=== PATIENT | female | born 1940 | race Caucasian/White ===

== ENCOUNTER 2017-09-21 14:09 | Outpatient (CLI) | payer MEDICARE, OTHER ==
--- NOTE | 2017-09-21 16:25 | DEXA Report ---
DEXA SCAN: 09/21/2017 CLINICAL INDICATION: Postmenopausal. TECHNIQUE: Dual energy x-ray absorptiometry (DXA) was performed on a [employer] system. Regions measured are the AP spine, femoral neck, and, if needed, forearm. COMPARISON: None. In accordance with the International Society for Clinical Densitometry (ISCD) guidelines, data from previous exams may be reanalyzed using current recommendations and techniques. This is done to allow a more accurate basis for comparison with the current study. FINDINGS Data for the lumbar spine is as follows: REGION BMD (g/cm/cm) T-SCORE Z-SCORE L1 0.970 -1.3 -0.3 L2 1.062 -1.2 -0.2 L3 1.098 -0.8 0.2 L4 1.104 -0.8 0.2 TOTAL 1.063 -1.0 0.0 NOTE: All evaluable vertebrae are used for classification. Data for the hip is as follows: REGION BMD (g/cm/cm) T-SCORE Z-SCORE Neck 0.942 -0.7 0.8 TOTAL 0.956 -0.4 0.8 NOTE: The femoral neck or total proximal femur, whichever is lowest, is used for classification. IMPRESSION: THE WHO CLASSIFICATION BASED ON THE INTERNATIONAL REFERENCE STANDARD IS NORMAL. FRACTURE RISK IS NOT INCREASED. RECOMMENDATION: Patients with diagnosis of osteoporosis or osteopenia should have regular bone mineral density assessment. For those eligible for Medicare, routine testing is allowed once every 2 years. Testing frequency can be increased for patients who have rapidly progressing disease or for those who are receiving medical therapy to restore bone mass. COMMENT: World Health Organization (WHO) definitions for osteoporosis and osteopenia: NORMAL BMD: T-score at -1.0 or higher, fracture risk is low. OSTEOPENIA BMD: T-score between -1.0 and -2.5, fracture risk is increased. OSTEOPOROSIS BMD: T-score at -2.5 or lower, fracture risk high. National Osteoporosis Foundation recommends: 1. Obtain adequate dietary calcium (at least 1200 mg per day) and vitamin D (400 -800 international units per day). 2. Participate, as appropriate, in regular weightbearing and muscle- strengthening exercise. 3. Avoid tobacco use and reduce alcohol and caffeine intake. 4. For more detailed information see the website at www.NOF.org. MTDD
== END 2017-09-21 14:10 | disposition home or self-care (01) ==
LOC: DI 14:09
PROVIDERS: ATTEND Family Medicine
DX: Z13.820 Encounter for screening for osteoporosis (principal); Z78.0 Asymptomatic menopausal state; E83.52 Hypercalcemia
CPT/HCPCS: 77080

== ENCOUNTER 2018-01-30 10:22 | Emergency (ER) | payer MEDICARE, OTHER ==
[2018-01-30] MEDS ORDERED: ALBUTEROL NEB 2.5 MG/3 ML INH STA ×2 (11:25→12:18)
--- NOTE | 2018-01-30 11:54 | XRAY Report ---
EXAM: CHEST RADIOGRAPHY EXAM DATE: 01/30/2018 11:33 AM. CLINICAL HISTORY: Cough, shortness of breath. COMPARISON: 12/31/2007 TECHNIQUE: 1 view. FINDINGS: Lungs/Pleura: No focal opacities evident. No pleural effusion. No pneumothorax. Mediastinum: Cardiomegaly Other: Surgical clips right CP angle IMPRESSION: No acute findings compared with 12/31/2007. Cardiomegaly. Clear lungs. [facility] Referring Provider Line: [phone] SITE ID: [id number]
[2018-01-30] MEDS ORDERED: DEXAMETHASONE 10 MG/ML VIAL PO STA (12:18)
[2018-01-30] MEDS ORDERED: DOXYCYCLINE 100 MG TABLET PO STA (12:19)
[2018-01-30] MEDS ORDERED: BENZONATATE 100 MG CAPSULE PO STA (12:20)
[2018-01-30 12:44] LABS: ALBUMIN 4.3 g/dL (3.2-5.5); ALBUMIN/GLOBULIN RATIO 1.3 (1.0-2.2); ALKALINE PHOSPHATASE 39 IU/L (42-121); ALT ALANINE AMINOTRANSFERASE 26 IU/L (10-60); AST ASPARTATE AMINOTRANSFERASE 28 IU/L (10-42); BILIRUBIN,TOTAL 1.9 mg/dL (0.2-1.0); BUN - BLOOD UREA NITROGEN 10 mg/dL (6-20); CALCIUM 9.5 mg/dL (8.5-10.3); CARBON DIOXIDE - CO2 26 mmol/L (21-32); CHLORIDE 98 mmol/L (101-111); CREATININE 0.5 mg/dL (0.4-1.0); DIGOXIN 1.7 ng/mL; GFR - MDRD 120 (>89); GLUCOSE 152 mg/dL (70-100); LIPASE 17 U/L (22-51); MAGNESIUM 1.8 mg/dL (1.7-2.8); SODIUM 133 mmol/L (135-145); TOTAL PROTEIN 7.5 g/dL (6.7-8.2)
--- NOTE | 2018-01-30 13:22 | ED Physician Documentation ---
PD HPI URI - Stated complaint Stated Complaint: COUGH,SOA - Chief complaint Chief Complaint: Resp - History obtained from History obtained from: Patient - History of Present Illness Timing - onset: How many days ago (has had some cough and congestion for week or two and now with few days of much increased cough, dyspnea, green sputum and some hurting with cough.) Timing duration: Days Timing details: Gradual onset, Still present Associated symptoms: Chills, Productive cough. No: Fever, Nasal congestion, Bilateral edema Contributing factors: No: Sick contact, Travel, Immunocompromised, COPD / asthma Similar symptoms before: Has not had sx before Recently seen: Not recently seen Review of Systems Constitutional: reports: Myalgias. denies: Fever, Chills Nose: denies: Rhinorrhea / runny nose, Congestion (previously couple weeks ago, not now.) Throat: denies: Sore throat Cardiac: reports: Chest pain / pressure (with cough). denies: Palpitations Respiratory: reports: Dyspnea, Cough GI: denies: Nausea, Vomiting, Diarrhea : denies: Dysuria, Frequency Skin: denies: Rash, Lesions PD PAST MEDICAL HISTORY - Past Medical History Cardiovascular: Hypertension, Atrial fibrillation Endocrine/Autoimmune: Type 2 diabetes, HyPOthyroidism - Past Surgical History Past Surgical History: Yes Ortho: Knee replacement, Carpal Tunnel surgery - Present Medications Home Medications: Ambulatory Orders Medication Instructions Recorded Confirmed Atorvastatin Calcium [Lipitor] 10 mg PO DAILY 03/30/15 01/05/16 Levothyroxine [Synthroid] 25 mcg PO QDAC 03/30/15 01/05/16 Olmesartan Medoxomil [Benicar] 20 mg PO DAILY 03/30/15 01/05/16 metFORMIN [Glucophage] 500 mg PO DAILY 03/30/15 01/05/16 diltiaZEM CD [Cardizem Cd] 360 mg PO DAILY 04/04/15 01/05/16 Digoxin 1 tab DAILY 01/05/16 01/05/16 Eszopiclone [Lunesta] 1 tab QPM 01/05/16 01/05/16 Anastrozole [Arimidex] 1 mg PO DAILY 12/17/17 Rivaroxaban [Xarelto] 20 mg PO DAILY 12/17/17 Albuterol Sulf [Ventolin Hfa 1 - 2 puffs INH Q4HR PRN #1 inhaler 01/30/18 Inhaler] Benzonatate [Tessalon] 100 mg PO TID PRN #25 capsule 01/30/18 Dexamethasone [Decadron] 4 mg PO DAILY #5 tablet 01/30/18 Diltiazem HCl [Diltiazem HCl Cd] 360 mg PO 01/30/18 Doxycycline Monohydrate 100 mg PO BID #14 tablet 01/30/18 - Allergies Allergies/Adverse Reactions: Allergies Allergy/AdvReac Type Severity Reaction Status Date / Time lisinopril Allergy Unknown Verified 01/30/18 10:43 metoprolol succinate * Allergy Respiratory Verified 01/30/18 10:43 [From Toprol XL] telmisartan Allergy Respiratory Verified 01/30/18 10:43 venom-wasp [wasp venom] Allergy Unknown Verified 01/30/18 10:43 zolpidem tartrate * Allergy Hallucinati Verified 01/30/18 10:43 [From Ambien] ons - Social History Does the pt smoke?: No Smoking Status: Never smoker Does the pt drink ETOH?: Yes Does the pt have substance abuse?: No - Immunizations Immunizations are current?: Yes - POLST Patient has POLST: No PD ED PE NORMAL - Vitals Vital signs reviewed: Yes - General General: Alert and oriented X 3, Well developed/nourished - HEENT HEENT: Ears normal, Pharynx benign - Neck Neck: Supple, no meningeal sign, No adenopathy - Cardiac Cardiac: RRR, No murmur - Respiratory Respiratory: No respiratory distress, Clear bilaterally - Abdomen Abdomen: Soft, Non tender - Derm Derm: Normal color, Warm and dry - Extremities Extremities: No edema, No calf tenderness / cord - Neuro Neuro: Alert and oriented X 3, No motor deficit, Normal speech Results - Vitals Vitals: Vital Signs - 24 hr 01/30/18 01/30/18 01/30/18 10:30 11:00 11:30 Temperature 36.7 C Heart Rate 95 80 86 Respiratory 20 23 22 Rate Blood Pressure 148/96 H 144/96 H O2 Saturation 91 L 94 93 01/30/18 01/30/18 01/30/18 12:00 13:00 13:02 Temperature Heart Rate 74 81 90 Respiratory 20 20 22 Rate Blood Pressure 156/93 H O2 Saturation 93 93 01/30/18 13:36 Temperature Heart Rate 97 Respiratory 24 Rate Blood Pressure 143/86 H O2 Saturation 92 Oxygen O2 Source Room air - Labs Labs: Laboratory Tests 01/30/18 11:17 Sodium 133 L Potassium 4.3 Chloride 98 L Carbon Dioxide 26 Anion Gap 9.0 BUN 10 Creatinine 0.5 Estimated GFR (MDRD) 120 Glucose 152 H Calcium 9.5 Magnesium 1.8 Total Bilirubin 1.9 H AST 28 ALT 26 Alkaline Phosphatase 39 L Total Protein 7.5 Albumin 4.3 Globulin 3.2 Albumin/Globulin Ratio 1.3 Lipase 17 L Last Dose Date UNK Last Dose Time UNK Digoxin 1.7 - Rads (name of study) chest Radiology: Prelim report reviewed, EMP read contemporaneously (no infiltrates) PD MEDICAL DECISION MAKING - ED course Complexity details: considered differential (prolonged cough and URI symptoms with now increased cough and green sputum, consider bacterial transformation. ) , d/w patient Departure - Departure Disposition: Home, Self Care Clinical Impression: Upper respiratory infection Qualifiers: URI type: unspecified URI Qualified Code(s): J06.9 - Acute upper respiratory infection, unspecified Condition: Stable Record reviewed to determine appropriate education?: Yes Instructions: ED Upper Resp Infec Abx Tx Follow-Up: Sridevi Sawant MD [Primary Care Provider] - Prescriptions: Albuterol Sulf [Ventolin Hfa Inhaler] 1 - 2 puffs INH Q4HR PRN #1 inhaler PRN Reason: Shortness Of Air/Wheezing Benzonatate [Tessalon] 100 mg PO TID PRN #25 capsule PRN Reason: Cough Dexamethasone [Decadron] 4 mg PO DAILY #5 tablet Doxycycline Monohydrate 100 mg PO BID #14 tablet Comments: We will treat your cough and respiratory infection as bacterial with doxycycline antibiotic. Also to use Decadron steroid anti-inflammatory and albuterol inhaler to help with the coughing and symptoms. Use the inhaler 2 puffs 4 times a day for the next 7-10 days and extra times as needed. Drink lots of fluids. Tessalon if needed for cough. Your digoxin level was slightly high in the range on blood test and so I would hold that for 2 days and then continue the normal. Follow-up with your primary care in about 3-5 days for recheck, call for an appointment. They will likely want to recheck your digoxin level in about a week or so to make sure it is still okay. Return if worsening symptoms. Discharge Date/Time: 01/30/18 14:10
[2018-01-30 13:38] VITALS: BP 143/86
== END 2018-01-30 14:10 | disposition home or self-care (01) ==
LOC: ED 10:22
DX: J06.9 Acute upper respiratory infection, unspecified (principal); I48.91 Unspecified atrial fibrillation; E11.9 Type 2 diabetes mellitus without complications; I10 Essential (primary) hypertension; E03.9 Hypothyroidism, unspecified; Z96.659 Presence of unspecified artificial knee joint
CPT/HCPCS: 36415; 71045; 80053; 80162; 83690; 83735; 93005; 94640; 99283; A9270

== ENCOUNTER 2018-07-30 15:57 | Emergency (ER) | payer MEDICARE, OTHER ==
[2018-07-30] MEDS ORDERED: AMPICILLIN/SULBACTAM 3 GM in SODIUM CHLORIDE 0.9% MINIBAG 100 ML IV STA (18:43)
[2018-07-30] MEDS ORDERED: TETANUS/DIPHTHERIA/PERTUSSIS 0.5 ML SYRINGE IM ONE (18:43)
[2018-07-30 18:59] LABS: BASOPHILS # (AUTO) 0.1 10^3/uL (0.0-0.1); BASOPHILS % (AUTO) 0.6 %; EOSINOPHILS # (AUTO) 0.1 10^3/uL (0.0-0.7); EOSINOPHILS % (AUTO) 0.6 %; HGB - HEMOGLOBIN 14.2 g/dL (12.0-16.0); LYMPHOCYTES # (AUTO) 1.3 10^3/uL (1.5-3.5); LYMPHOCYTES % (AUTO) 13.4 %; MEAN CORPUSCULAR HEMOGLOBIN 30.9 pg (27.0-31.0); MEAN CORPUSCULAR HGB CONC 34.6 g/dL (32.0-36.0); MEAN CORPUSCULAR VOLUME 89.2 fL (81.0-99.0); MEAN PLATELET VOLUME 8.4 fL (7.9-10.8); MONOCYTES # (AUTO) 0.9 10^3/uL (0.0-1.0); MONOCYTES % (AUTO) 9.5 %; NEUTROPHILS # (AUTO) 7.3 10^3/uL (1.5-6.6); NEUTROPHILS % (AUTO) 75.9 %; PLT - PLATELET COUNT 159 10^3/uL (130-450); RED BLOOD COUNT 4.61 10^6/uL (4.20-5.40); RED CELL DISTRIBUTION WIDTH 14.1 % (12.0-15.0); WHITE BLOOD COUNT 9.6 x10^3/uL (4.8-10.8)
[2018-07-30 19:06] LABS: CALCIUM 9.8 mg/dL (8.5-10.3); CREATININE 0.6 mg/dL (0.4-1.0)
--- NOTE | 2018-07-30 19:51 | XRAY Report ---
Reason: Redness and swelling Procedure Date: 07/30/2018 Accession Number: [id number] / [id number] Procedure: XR - Tib/Fib RT CPT Code: FULL RESULT: EXAM: RIGHT TIBIA/FIBULA RADIOGRAPHY EXAM DATE: 07/30/2018 07:13 PM. CLINICAL HISTORY: Redness and swelling. COMPARISON: None. TECHNIQUE: 2 views. FINDINGS: No acute bony abnormality. No evidence of lytic lesion or periosteal new bone formation. No fracture. Mild spurring noted at the knee. Unremarkable ankle. There is mild soft tissue swelling lateral and ventral. IMPRESSION: Mild lateral and ventral soft tissue swelling. Otherwise essentially unremarkable. No acute bony abnormality. [facility]
[2018-07-30 20:03] VITALS: BP 119/64
--- NOTE | 2018-07-30 20:20 | ED Physician Documentation ---
PD HPI ANIMAL BITE - Stated complaint Stated Complaint: CAT BITE/SWELLING/ R LEG - Chief complaint Chief Complaint: Wound - History obtained from History obtained from: Patient - Additional information Additional information: 78-year-old female presents the emergency department with complaints of right lower leg redness and swelling. The patient was bit by her cat 3 times in her lower leg. The cat is up-to-date on its vaccinations. The patient reports redness which has gradually worsened and swelling. The patient had an episode of chills. No reports of fever. Symptoms are described as moderate. No relieving factors. Review of Systems Constitutional: reports: Chills, Fatigue. denies: Fever Eyes: denies: Discharge Nose: denies: Congestion Throat: denies: Sore throat Cardiac: denies: Chest pain / pressure Respiratory: denies: Dyspnea GI: denies: Abdominal Pain Skin: reports: Other (Cellulitis) Musculoskeletal: reports: Extremity pain Psychiatric: denies: Hallucinations PD PAST MEDICAL HISTORY - Past Medical History Past Medical History: Yes Cardiovascular: Hypertension, Atrial fibrillation Endocrine/Autoimmune: Type 2 diabetes, HyPOthyroidism - Past Surgical History Past Surgical History: Yes Ortho: Knee replacement, Carpal Tunnel surgery - Present Medications Home Medications: Ambulatory Orders Medication Instructions Recorded Confirmed Atorvastatin Calcium [Lipitor] 10 mg PO DAILY 03/30/15 01/05/16 Levothyroxine [Synthroid] 25 mcg PO QDAC 03/30/15 01/05/16 Olmesartan Medoxomil [Benicar] 20 mg PO DAILY 03/30/15 01/05/16 metFORMIN [Glucophage] 500 mg PO DAILY 03/30/15 01/05/16 diltiaZEM CD [Cardizem Cd] 360 mg PO DAILY 04/04/15 01/05/16 Digoxin 1 tab DAILY 01/05/16 01/05/16 Eszopiclone [Lunesta] 1 tab QPM 01/05/16 01/05/16 Anastrozole [Arimidex] 1 mg PO DAILY 12/17/17 Rivaroxaban [Xarelto] 20 mg PO DAILY 12/17/17 Albuterol Sulf [Ventolin Hfa 1 - 2 puffs INH Q4HR PRN #1 inhaler 01/30/18 Inhaler] Benzonatate [Tessalon] 100 mg PO TID PRN #25 capsule 01/30/18 Dexamethasone [Decadron] 4 mg PO DAILY #5 tablet 01/30/18 Doxycycline Monohydrate 100 mg PO BID #14 tablet 01/30/18 dilTIAZem HCl [Diltiazem HCl Cd] 360 mg PO 01/30/18 Amox/Clav 875/125 [Augmentin] 1 each PO Q12H #20 tablet 07/30/18 - Allergies Allergies/Adverse Reactions: Allergies Allergy/AdvReac Type Severity Reaction Status Date / Time lisinopril Allergy Unknown Verified 07/30/18 16:38 metoprolol succinate * Allergy Respiratory Verified 07/30/18 16:38 [From Toprol XL] telmisartan Allergy Respiratory Verified 07/30/18 16:38 venom-wasp [wasp venom] Allergy Unknown Verified 07/30/18 16:38 zolpidem tartrate * Allergy Hallucinati Verified 07/30/18 16:38 [From Ambien] ons - Social History Does the pt smoke?: No Smoking Status: Never smoker Does the pt drink ETOH?: Yes Does the pt have substance abuse?: No - Immunizations Immunizations are current?: Yes - POLST Patient has POLST: No PD ED PE NORMAL - General General: Alert and oriented X 3, No acute distress - HEENT HEENT: Atraumatic, PERRL, EOMI, Ears normal - Derm Derm: Other (The patient has cellulitic changes to the right lower extremity below the knee to just above the ankle with mild edema. There is no crepitus or subcutaneous emphysema. The patient has no evidence of joint effusion or pain in any of her joints.) - Extremities Extremities: Normal ROM s pain, Other (Normal dorsalis pedis pulse) - Neuro Neuro: Alert and oriented X 3, Normal speech - Psych Psych: Normal mood Results - Vitals Vitals: Vital Signs - 24 hr 07/30/18 07/30/18 07/30/18 16:27 18:55 20:03 Temperature 36.2 C L 36.8 C Heart Rate 84 70 76 Respiratory 18 18 Rate Blood Pressure 107/62 127/59 L 119/64 O2 Saturation 96 95 97 Oxygen O2 Source Room air - Labs Labs: Laboratory Tests 07/30/18 07/30/18 18:49 18:49 WBC 9.6 RBC 4.61 Hgb 14.2 Hct 41.1 MCV 89.2 MCH 30.9 MCHC 34.6 RDW 14.1 Plt Count 159 MPV 8.4 Neut # (Auto) 7.3 H Lymph # (Auto) 1.3 L [place] # (Auto) 0.9 Eos # (Auto) 0.1 Baso # (Auto) 0.1 Absolute Nucleated RBC 0.01 Nucleated RBC % 0.1 Sodium 135 Potassium 3.7 Chloride 100 L Carbon Dioxide 25 Anion Gap 10.0 BUN 12 Creatinine 0.6 Estimated GFR (MDRD) 97 Glucose 121 H Calcium 9.8 - Rads (name of study) XR tib/fib Radiology: Final report received PD MEDICAL DECISION MAKING - ED course ED course: On reevaluation the patient resting comfortably, currently there is no evidence of sepsis or necrotizing fasciitis. The patient appears to have cellulitis secondary to the cat bite and appears appropriate for a trial of outpatient management with oral antibiotics. The patient was given 1 dose of IV antibiotics in the emergency department. The area was marked. I discussed with the patient warning signs and recommended returning to the emergency department immediately for worsening or any concerns. - Sepsis Event Vital Signs: Vital Signs - 24 hr 07/30/18 07/30/18 07/30/18 16:27 18:55 20:03 Temperature 36.2 C L 36.8 C Heart Rate 84 70 76 Respiratory 18 18 Rate Blood Pressure 107/62 127/59 L 119/64 O2 Saturation 96 95 97 Oxygen O2 Source Room air Departure - Departure Disposition: 01 Home, Self Care Clinical Impression: Cat bite Qualifiers: Encounter type: initial encounter Qualified Code(s): W55.01XA - Bitten by cat, initial encounter Cellulitis Qualifiers: Site of cellulitis: extremity Site of cellulitis of extremity: lower extremity Laterality: unspecified laterality Qualified Code(s): L03.119 - Cellulitis of unspecified part of limb Condition: Good Instructions: ED Infec Skin Cellulitis, ED Animal Bite Ch Follow-Up: Sridevi Sawant MD [Primary Care Provider] - Within 3 Days Prescriptions: Amox/Clav 875/125 [Augmentin] 1 each PO Q12H #20 tablet Comments: Please return to the emergency department immediately for worsening symptoms or any concerns
== END 2018-07-30 20:30 | disposition home or self-care (01) ==
LOC: ED 15:57
DX: L03.119 Cellulitis of unspecified part of limb (principal); I10 Essential (primary) hypertension; E11.9 Type 2 diabetes mellitus without complications; E03.9 Hypothyroidism, unspecified; Z23 Encounter for immunization
CPT/HCPCS: 36415; 80048; 85025; 87040; 90471; 96365; 99283

== ENCOUNTER 2019-02-17 08:00 | Outpatient (CLI) | payer MEDICARE, OTHER ==
[2019-02-17 13:28] LABS: BUN - BLOOD UREA NITROGEN 12 mg/dL (6-20); CALCIUM 9.5 mg/dL (8.5-10.3); CARBON DIOXIDE - CO2 28 mmol/L (21-32); CHLORIDE 100 mmol/L (101-111); CHOL/HDL RATIO 3.1 (<4.4); CHOLESTEROL 131 mg/dL; CREATININE 0.6 mg/dL (0.4-1.0); CREATININE,URINE 56.2 mg/dL; GFR - MDRD 97 (>89); GLUCOSE 164 mg/dL (70-100); HDL CHOLESTEROL 42 mg/dL; LDL CHOLESTEROL,CALCULATED 67 mg/dL; LDL/HDL RATIO 1.6 (<4.4); MICROALBUM/CREATININE RATIO,UR 7.1 ug/mg (<30.0); MICROALBUMIN,URINE 0.4 mg/dL (0-300.0); SODIUM 137 mmol/L (135-145); VLDL CHOLESTEROL 22 mg/dL
[2019-02-17 13:33] LABS: HB2 TOTAL 15.6 g/dL; HEMOGLOBIN A1C 0.79 g/dL; HEMOGLOBIN A1C % 6.8 % (4.6-6.2); THYROID STIMULATING HORMONE 1.95 uIU/mL (0.34-5.60)
[2019-02-17 13:38] LABS: FREE T4 (FREE THYROXINE) 1.05 ng/dL (0.58-1.64)
== END 2019-02-17 23:59 | disposition home or self-care (01) ==
LOC: LAB.N 08:00
PROVIDERS: ATTEND Family Medicine
DX: E11.21 Type 2 diabetes mellitus with diabetic nephropathy (principal); I10 Essential (primary) hypertension; E03.9 Hypothyroidism, unspecified; E78.5 Hyperlipidemia, unspecified; E83.52 Hypercalcemia
CPT/HCPCS: 36415; 80048; 80061; 82043; 82570; 83036; 83721; 83970; 84439; 84443

== ENCOUNTER 2019-06-25 11:16 | Emergency (ER) | payer MEDICARE, OTHER ==
[2019-06-25 12:11] VITALS: BP 114/77
--- NOTE | 2019-06-25 12:55 | ED Physician Documentation ---
PD HPI CHEST PAIN - Stated complaint Stated Complaint: CONGESTION/COUGH - Chief complaint Chief Complaint: Resp - History obtained from History obtained from: Patient - History of Present Illness Timing - onset: Other (Been sick for about a week, mostly upper respiratory symptoms at first but now more of a productive cough with shortness of breath. No fevers. She has a history of atrial fibrillation on Xarelto. Her legs are not swollen. Cough is productive of minimal yellowish sputum and is keeping her up at night. No fevers.) Review of Systems Ten Systems: 10 systems reviewed and negative Constitutional: denies: Fever, Chills Nose: reports: Rhinorrhea / runny nose, Congestion Throat: denies: Sore throat Cardiac: denies: Chest pain / pressure, Palpitations, Pedal edema, Calf pain Respiratory: reports: Dyspnea, Cough GI: denies: Abdominal Pain PD PAST MEDICAL HISTORY - Past Medical History Cardiovascular: Hypertension, Atrial fibrillation Endocrine/Autoimmune: Type 2 diabetes, HyPOthyroidism - Past Surgical History Past Surgical History: Yes Ortho: Knee replacement, Carpal Tunnel surgery - Present Medications Home Medications: Ambulatory Orders Medication Instructions Recorded Confirmed Atorvastatin Calcium [Lipitor] 10 mg PO DAILY 03/30/15 01/05/16 Levothyroxine [Synthroid] 25 mcg PO QDAC 03/30/15 01/05/16 Olmesartan Medoxomil [Benicar] 20 mg PO DAILY 03/30/15 01/05/16 metFORMIN [Glucophage] 500 mg PO DAILY 03/30/15 01/05/16 diltiaZEM CD [Cardizem Cd] 360 mg PO DAILY 04/04/15 01/05/16 Digoxin 1 tab DAILY 01/05/16 01/05/16 Eszopiclone [Lunesta] 1 tab QPM 01/05/16 01/05/16 Anastrozole [Arimidex] 1 mg PO DAILY 12/17/17 Rivaroxaban [Xarelto] 20 mg PO DAILY 12/17/17 Albuterol Sulf [Ventolin Hfa 1 - 2 puffs INH Q4HR PRN #1 inhaler 01/30/18 Inhaler] Benzonatate [Tessalon] 100 mg PO TID PRN #25 capsule 01/30/18 Doxycycline Monohydrate 100 mg PO BID #14 tablet 01/30/18 dexAMETHasone [Decadron] 4 mg PO DAILY #5 tablet 01/30/18 dilTIAZem HCl [Diltiazem HCl Cd] 360 mg PO 01/30/18 Amox/Clav 875/125 [Augmentin] 1 each PO Q12H #20 tablet 07/30/18 Albuterol Sulf [Ventolin Hfa 1 - 2 puffs INH Q4HR PRN #1 inhaler 06/25/19 Inhaler] Doxycycline Hyclate 100 mg PO BID #14 capsule 06/25/19 guaiFENesin/CODEINE [Robitussin AC] 5 - 10 ml PO Q6H PRN #120 ml 06/25/19 predniSONE [Deltasone] 60 mg PO DAILY 5 Days tablet 06/25/19 - Allergies Allergies/Adverse Reactions: Allergies Allergy/AdvReac Type Severity Reaction Status Date / Time lisinopril Allergy Unknown Verified 06/25/19 11:49 metoprolol succinate * Allergy Respiratory Verified 06/25/19 11:49 [From Toprol XL] telmisartan Allergy Respiratory Verified 06/25/19 11:49 venom-wasp [wasp venom] Allergy Unknown Verified 06/25/19 11:49 zolpidem tartrate * Allergy Hallucinati Verified 06/25/19 11:49 [From Ambien] ons - Social History Does the pt smoke?: No Smoking Status: Never smoker Does the pt drink ETOH?: Yes Does the pt have substance abuse?: No - Immunizations Immunizations are current?: Yes - POLST Patient has POLST: No PD ED PE NORMAL - Vitals Vital signs reviewed: Yes - General General: Alert and oriented X 3, No acute distress - HEENT HEENT: Ears normal, Pharynx benign - Neck Neck: Supple, no meningeal sign, No bony TTP - Cardiac Cardiac: Other (Irregularly irregular without murmur) - Respiratory Respiratory: No respiratory distress, Other (Slightly wheezy throughout without focal findings) - Abdomen Abdomen: Non tender - Extremities Extremities: No edema, No calf tenderness / cord - Neuro Neuro: Alert and oriented X 3, Normal speech Results - Vitals Vitals: Vital Signs - 24 hr 06/25/19 06/25/19 11:46 12:10 Temperature 36.3 C L Heart Rate 115 H 102 H Respiratory 22 28 H Rate Blood Pressure 128/62 114/77 O2 Saturation 91 L 94 Oxygen O2 Source Room air PD MEDICAL DECISION MAKING - ED course ED course: This is a 79-year-old woman with what seems like asthmatic bronchitis. There is no evidence of active CHF, nothing in the history or physical to suggest PE, ACS etc. Given comorbidities and advanced age she was given steroids, antibiotics, inhaler and codeine. Departure - Departure Disposition: 01 Home, Self Care Clinical Impression: Bronchitis Condition: Good Record reviewed to determine appropriate education?: Yes Instructions: ED Bronchitis Asthmatic Prescriptions: Albuterol Sulf [Ventolin Hfa Inhaler] 1 - 2 puffs INH Q4HR PRN #1 inhaler PRN Reason: Shortness Of Air/Wheezing Doxycycline Hyclate 100 mg PO BID #14 capsule guaiFENesin/CODEINE [Robitussin AC] 5 - 10 ml PO Q6H PRN #120 ml PRN Reason: Cough predniSONE [Deltasone] 60 mg PO DAILY 5 Days tablet Comments: Call your doctor to arrange a follow-up appointment, make the next available appointment. In the interim, return anytime if worse or if new symptoms develop.
--- NOTE | 2019-06-25 13:01 | XRAY Report ---
Reason: cough Procedure Date: 06/25/2019 Accession Number: [id number] / [id number] Procedure: XR - Chest 2 View X-Ray CPT Code: 98924 FULL RESULT: EXAM: CHEST RADIOGRAPHY EXAM DATE: 06/25/2019 12:36 PM. CLINICAL HISTORY: Cough. COMPARISON: CHEST 1 VIEW 01/30/2018 11:25 AM. TECHNIQUE: 2 views. FINDINGS: Lungs/Pleura: No focal opacities evident. No pleural effusion. No pneumothorax. Normal volumes. Mediastinum: Marked cardiomegaly is redemonstrated, not significantly changed. Other: Surgical clips project over the right lower lateral lung, likely breast related. IMPRESSION: No acute cardiopulmonary abnormality. [facility]
== END 2019-06-25 12:55 | disposition home or self-care (01) ==
LOC: ED 11:16
DX: J40 Bronchitis, not specified as acute or chronic (principal); I10 Essential (primary) hypertension; I48.91 Unspecified atrial fibrillation; Z79.01 Long term (current) use of anticoagulants; E11.9 Type 2 diabetes mellitus without complications; Z79.84 Long term (current) use of oral hypoglycemic drugs
CPT/HCPCS: 71046; 99284

== ENCOUNTER 2021-05-13 14:27 | Outpatient (CLI) | payer MEDICARE, OTHER ==
--- NOTE | 2021-05-13 16:29 | DEXA Report ---
PROCEDURE: Dexa Spine and/or Hip INDICATIONS: BREAST CA/SENIOR CARE CURRENT USE OF AROMATASE INHIB TECHNIQUE: Dual energy x-ray absorptiometry (DXA) was performed on a [employer] System. Regions measur ed are the AP Spine, femoral neck, and if needed forearm. COMPARISON: 05/21/2017. FINDINGS: Lumbar Spine: Bone Mineral Density 1.014 g/cm/cm,T score -1.4, osteopenia Left Hip: Bone Mineral Density 0.955 g/cm/cm,T score -0.4, normal Left Femoral Neck: Bone Mineral Density 0.878 g/cm/cm, T score -1.1, osteopenia (T score greater or equal to -1.0: NORMAL) (T score from -1.1 to -2.4: OSTEOPENIA) (T score less than or equal to -2.5 to: OSTEOPOROSIS) Impression: Osteopenia. Bone mineral density has decreased 4.6% in the interval since prior exam obta sommer 09/21/2017. Patients with diagnosis of osteoporosis or osteopenia should have regular bone mineral density assess ment. For those eligible for Medicare, routine testing is allowed once every 2 years. Testing frequ ency can be increased for patients who have rapidly progressing disease or for those who are receivin g medical therapy to restore bone mass. Reviewed by: Candice Orourke MD, PhD on 05/13/2021 4:28 PM PDT Approved by: Candice Orourke MD, PhD on 05/13/2021 4:28 PM PDT Station ID: [id number]
== END 2021-05-13 14:28 | disposition home or self-care (01) ==
LOC: DI 14:27
PROVIDERS: ATTEND Nurse Practitioner
DX: C50.919 Malignant neoplasm of unspecified site of unspecified female breast (principal); Z17.0 Estrogen receptor positive status [ER+]; Z79.811 Long term (current) use of aromatase inhibitors; M85.88 Other specified disorders of bone density and structure, other site

== ENCOUNTER 2022-09-13 14:52 | Outpatient (CLI) | payer MEDICARE, OTHER ==
[2022-09-13 21:06] LABS: ESTIMATED AVERAGE GLUCOSE 117 mg/dL (70-100); HEMOGLOBIN A1c% 5.7 % (4.27-6.07)
== END 2022-09-13 14:53 | disposition home or self-care (01) ==
LOC: LAB.N 14:52
PROVIDERS: ATTEND Student in an Organized Health Care Education/Training Program
DX: E11.9 Type 2 diabetes mellitus without complications (principal)
CPT/HCPCS: 36415; 83036

== ENCOUNTER 2022-12-19 08:37 | Outpatient (CLI) | payer MEDICARE, OTHER ==
[2022-12-19 13:21] LABS: ESTIMATED AVERAGE GLUCOSE 120 mg/dL (70-100); HEMOGLOBIN A1c% 5.8 % (4.27-6.07)
[2022-12-19 13:36] LABS: CREATININE,URINE 76.2 mg/dL; MICROALBUM/CREATININE RATIO,UR 5.2 ug/mg (<30.0); MICROALBUMIN,URINE 0.4 mg/dL (0-300.0)
[2022-12-19 17:54] LABS: ALBUMIN 4.3 g/dL (3.2-5.5); ALBUMIN/GLOBULIN RATIO 1.4 (1.0-2.2); ALKALINE PHOSPHATASE 63 IU/L (42-121); ALT ALANINE AMINOTRANSFERASE 10 IU/L (10-60); AST ASPARTATE AMINOTRANSFERASE 18 IU/L (10-42); BILIRUBIN,TOTAL 1.5 mg/dL (0.2-1.0); BUN - BLOOD UREA NITROGEN 14 mg/dL (6-20); CALCIUM 10.7 mg/dL (8.5-10.3); CARBON DIOXIDE - CO2 26 mmol/L (21-32); CHLORIDE 102 mmol/L (101-111); CHOL/HDL RATIO 2.2 (<4.4); CHOLESTEROL 156 mg/dL; CREATININE 0.6 mg/dL (0.4-1.0); GFR - MDRD 96 (>89); GLUCOSE 118 mg/dL (70-100); HDL CHOLESTEROL 70 mg/dL; LDL CHOLESTEROL,CALCULATED 77 mg/dL; LDL/HDL RATIO 1.1 (<4.4); POTASSIUM 4.5 mmol/L (3.5-5.0); SODIUM 141 mmol/L (135-145); TOTAL PROTEIN 7.4 g/dL (6.7-8.2); TRIGLYCERIDES 46 mg/dL; VLDL CHOLESTEROL 9 mg/dL
== END 2022-12-19 08:38 | disposition home or self-care (01) ==
LOC: LAB.N 08:37
PROVIDERS: ATTEND Family Medicine
DX: E11.9 Type 2 diabetes mellitus without complications (principal)
CPT/HCPCS: 36415; 80053; 80061; 82043; 82570; 83036; 83721

== ENCOUNTER 2023-03-22 11:50 | Outpatient (CLI) | payer MEDICARE, OTHER | END 2023-03-22 11:51 | disposition critical access hospital (66) | LOC: EMS 11:50 | DX: R06.02 Shortness of breath (principal); R05.9 Cough, unspecified | CPT/HCPCS: A0425; A0427 ==

== ENCOUNTER 2023-05-29 08:40 | Outpatient (CLI) | payer MEDICARE, OTHER ==
[2023-05-29 12:18] LABS: BASOPHILS # (AUTO) 0.1 10^3/uL (0.0-0.1); BASOPHILS % (AUTO) 1.1 %; EOSINOPHILS # (AUTO) 0.1 10^3/uL (0.0-0.7); HCT - HEMATOCRIT 42.7 % (37.0-47.0); HGB - HEMOGLOBIN 13.5 g/dL (12.0-16.0); LYMPHOCYTES # (AUTO) 0.9 10^3/uL (1.5-3.5); LYMPHOCYTES % (AUTO) 18.8 %; MEAN CORPUSCULAR HEMOGLOBIN 29.9 pg (27.0-31.0); MEAN CORPUSCULAR HGB CONC 31.6 g/dL (32.0-36.0); MEAN CORPUSCULAR VOLUME 94.5 fL (81.0-99.0); MEAN PLATELET VOLUME 10.6 fL (7.9-10.8); MONOCYTES # (AUTO) 0.6 10^3/uL (0.0-1.0); MONOCYTES % (AUTO) 13.3 %; NEUTROPHILS % (AUTO) 63.6 %; PLT - PLATELET COUNT 183 10^3/uL (130-450); RED BLOOD COUNT 4.52 10^6/uL (4.20-5.40); RED CELL DISTRIBUTION WIDTH 13.5 % (12.0-15.0); WHITE BLOOD COUNT 4.7 x10^3/uL (4.8-10.8)
[2023-05-29 12:44] LABS: ALBUMIN 4.6 g/dL (3.2-5.5); ALBUMIN/GLOBULIN RATIO 1.5 (1.0-2.2); ALKALINE PHOSPHATASE 56 IU/L (42-121); ALT ALANINE AMINOTRANSFERASE 14 IU/L (10-60); AST ASPARTATE AMINOTRANSFERASE 18 IU/L (10-42); BILIRUBIN,TOTAL 1.7 mg/dL (0.2-1.0); BUN - BLOOD UREA NITROGEN 15 mg/dL (6-20); CALCIUM 9.5 mg/dL (8.5-10.3); CARBON DIOXIDE - CO2 27 mmol/L (21-32); CHLORIDE 106 mmol/L (101-111); CHOLESTEROL 163 mg/dL; CREATININE 0.7 mg/dL (0.4-1.0); GFR - MDRD 80 (>89); GLUCOSE 132 mg/dL (70-100); HDL CHOLESTEROL 83 mg/dL; LDL CHOLESTEROL,CALCULATED 70 mg/dL; LDL/HDL RATIO 0.8 (<4.4); POTASSIUM 4.1 mmol/L (3.5-5.0); SODIUM 139 mmol/L (135-145); THYROID STIMULATING HORMONE 1.07 uIU/mL (0.34-5.60); TOTAL PROTEIN 7.7 g/dL (6.7-8.2); TRIGLYCERIDES 50 mg/dL; VLDL CHOLESTEROL 10 mg/dL
[2023-05-29 12:48] LABS: CREATININE,URINE 56.1 mg/dL; MICROALBUM/CREATININE RATIO,UR 5.3 ug/mg (<30.0); MICROALBUMIN,URINE 0.3 mg/dL (0-300.0)
[2023-05-29 13:08] LABS: ESTIMATED AVERAGE GLUCOSE 114 mg/dL (70-100); HEMOGLOBIN A1c% 5.6 % (4.27-6.07)
== END 2023-05-29 08:41 | disposition home or self-care (01) ==
LOC: LAB.N 08:40
PROVIDERS: ATTEND Family Medicine
DX: E11.9 Type 2 diabetes mellitus without complications (principal); R06.09 Other forms of dyspnea; I10 Essential (primary) hypertension; I48.11 Longstanding persistent atrial fibrillation; R60.9 Edema, unspecified; E03.9 Hypothyroidism, unspecified; R05.3 Chronic cough; C50.919 Malignant neoplasm of unspecified site of unspecified female breast; E78.2 Mixed hyperlipidemia
CPT/HCPCS: 36415; 80053; 80061; 82043; 82570; 83036; 83721; 84443; 85025

== ENCOUNTER 2023-06-07 13:44 | Outpatient (CLI) | payer MEDICARE, OTHER ==
[2023-06-07 18:04] LABS: BASOPHILS # (AUTO) 0.1 10^3/uL (0.0-0.1); BASOPHILS % (AUTO) 1.1 %; EOSINOPHILS # (AUTO) 0.2 10^3/uL (0.0-0.7); EOSINOPHILS % (AUTO) 4.4 %; HCT - HEMATOCRIT 41.9 % (37.0-47.0); HGB - HEMOGLOBIN 13.1 g/dL (12.0-16.0); LYMPHOCYTES % (AUTO) 18.6 %; MEAN CORPUSCULAR HEMOGLOBIN 29.2 pg (27.0-31.0); MEAN CORPUSCULAR HGB CONC 31.3 g/dL (32.0-36.0); MEAN CORPUSCULAR VOLUME 93.5 fL (81.0-99.0); MEAN PLATELET VOLUME 10.5 fL (7.9-10.8); MONOCYTES # (AUTO) 0.7 10^3/uL (0.0-1.0); MONOCYTES % (AUTO) 12.9 %; NEUTROPHILS # (AUTO) 3.4 10^3/uL (1.5-6.6); NEUTROPHILS % (AUTO) 62.8 %; PLT - PLATELET COUNT 204 10^3/uL (130-450); RED BLOOD COUNT 4.48 10^6/uL (4.20-5.40); RED CELL DISTRIBUTION WIDTH 13.5 % (12.0-15.0); WHITE BLOOD COUNT 5.4 x10^3/uL (4.8-10.8)
[2023-06-07 18:12] LABS: INR 2.4 (0.8-1.2); PT - PROTHROMBIN TIME 25.1 secs (9.9-12.6)
[2023-06-07 18:23] LABS: ALBUMIN 4.5 g/dL (3.2-5.5); ALBUMIN/GLOBULIN RATIO 1.6 (1.0-2.2); BILIRUBIN,TOTAL 1.3 mg/dL (0.2-1.0); CREATININE 0.6 mg/dL (0.6-1.3); POTASSIUM 4.3 mmol/L (3.5-4.5); TOTAL PROTEIN 7.3 g/dL (6.4-8.9)
== END 2023-06-07 13:45 | disposition home or self-care (01) ==
LOC: LAB.N 13:44
DX: R93.2 Abnormal findings on diagnostic imaging of liver and biliary tract (principal)
CPT/HCPCS: 36415; 80053; 85025; 85610

== ENCOUNTER 2023-07-11 14:06 | Outpatient (CLI) | payer MEDICARE, OTHER ==
[2023-07-11 18:15] LABS: INR 2.4 (0.8-1.2); PT - PROTHROMBIN TIME 24.4 secs (9.9-12.6)
[2023-07-11 18:23] LABS: PARTIAL THROMBOPLASTIN TIME 44.4 secs (24.9-33.3)
== END 2023-07-11 14:07 | disposition home or self-care (01) ==
LOC: LAB.N 14:06
DX: I48.91 Unspecified atrial fibrillation (principal); E11.69 Type 2 diabetes mellitus with other specified complication; R06.09 Other forms of dyspnea
CPT/HCPCS: 36415; 85610; 85730

== ENCOUNTER 2023-07-26 16:15 | Outpatient (CLI) | payer MEDICARE, OTHER ==
[2023-07-26 17:53] LABS: CALCIUM 10.1 mg/dL (8.5-10.3); CREATININE 0.6 mg/dL (0.6-1.3); POTASSIUM 4.2 mmol/L (3.5-4.5)
== END 2023-07-26 16:16 | disposition home or self-care (01) ==
LOC: LAB.N 16:15
PROVIDERS: ATTEND Internal Medicine Cardiovascular Disease
DX: I27.20 Pulmonary hypertension, unspecified (principal)
CPT/HCPCS: 36415; 80048

== ENCOUNTER 2023-08-24 14:52 | Outpatient (CLI) | payer MEDICARE, OTHER ==
[2023-08-24 18:30] LABS: INR 2.6 (0.8-1.2); PT - PROTHROMBIN TIME 27.1 secs (9.9-12.6)
[2023-08-24 18:44] LABS: PARTIAL THROMBOPLASTIN TIME 40.9 secs (24.9-33.3)
== END 2023-08-24 14:53 | disposition home or self-care (01) ==
LOC: LAB.N 14:52
PROVIDERS: ATTEND Family Medicine
DX: I48.91 Unspecified atrial fibrillation (principal); E11.69 Type 2 diabetes mellitus with other specified complication; R06.09 Other forms of dyspnea
CPT/HCPCS: 36415; 85610; 85730

== ENCOUNTER 2023-12-20 08:50 | Outpatient (CLI) | payer MEDICARE, OTHER ==
[2023-12-20 12:37] LABS: HGB - HEMOGLOBIN 9.4 g/dL (12.0-16.0); MEAN CORPUSCULAR HEMOGLOBIN 28.3 pg (27.0-31.0); MEAN CORPUSCULAR HGB CONC 30.3 g/dL (32.0-36.0); MEAN CORPUSCULAR VOLUME 93.4 fL (81.0-99.0); MEAN PLATELET VOLUME 9.8 fL (7.9-10.8); RED BLOOD COUNT 3.32 10^6/uL (4.20-5.40); RED CELL DISTRIBUTION WIDTH 12.8 % (12.0-15.0); WHITE BLOOD COUNT 4.9 x10^3/uL (4.8-10.8)
[2023-12-20 12:47] LABS: ALBUMIN 4.2 g/dL (3.2-5.5); ALBUMIN/GLOBULIN RATIO 1.6 (1.0-2.2); ALKALINE PHOSPHATASE 41 IU/L (42-121); ALT ALANINE AMINOTRANSFERASE 7 IU/L (10-60); AST ASPARTATE AMINOTRANSFERASE 12 IU/L (10-42); BILIRUBIN,TOTAL 0.9 mg/dL (0.2-1.0); BUN - BLOOD UREA NITROGEN 25 mg/dL (6-20); CALCIUM 9.3 mg/dL (8.5-10.3); CARBON DIOXIDE - CO2 24 mmol/L (21-32); CHLORIDE 108 mmol/L (101-111); CHOL/HDL RATIO 2.2 (<4.4); CHOLESTEROL 134 mg/dL; CREATININE 0.9 mg/dL (0.6-1.3); GFR - MDRD 60 (>89); GLUCOSE 115 mg/dL (74-104); HDL CHOLESTEROL 62 mg/dL; LDL CHOLESTEROL,CALCULATED 60 mg/dL; POTASSIUM 4.6 mmol/L (3.5-4.5); SODIUM 137 mmol/L (135-145); TOTAL PROTEIN 6.8 g/dL (6.4-8.9); TRIGLYCERIDES 59 mg/dL (48-352); VLDL CHOLESTEROL 12 mg/dL
[2023-12-20 12:57] LABS: ESTIMATED AVERAGE GLUCOSE 100 mg/dL (70-100); HEMOGLOBIN A1c% 5.1 % (4.27-6.07)
[2023-12-20 13:01] LABS: THYROID STIMULATING HORMONE 1.02 uIU/mL (0.34-5.60)
== END 2023-12-20 08:51 | disposition home or self-care (01) ==
LOC: LAB.N 08:50
PROVIDERS: ATTEND Family Medicine
DX: I10 Essential (primary) hypertension (principal); R06.09 Other forms of dyspnea; R05.3 Chronic cough; I48.11 Longstanding persistent atrial fibrillation; K76.0 Fatty (change of) liver, not elsewhere classified; E03.9 Hypothyroidism, unspecified; E78.00 Pure hypercholesterolemia, unspecified; I48.91 Unspecified atrial fibrillation; E11.69 Type 2 diabetes mellitus with other specified complication
CPT/HCPCS: 36415; 80053; 80061; 83036; 83721; 84443; 85027; 85730

== ENCOUNTER 2024-02-05 11:44 | Outpatient (CLI) | payer MEDICARE, OTHER ==
[2024-02-05 17:40] LABS: BASOPHILS # (AUTO) 0.1 10^3/uL (0.0-0.1); BASOPHILS % (AUTO) 0.7 %; EOSINOPHILS # (AUTO) 0.1 10^3/uL (0.0-0.7); EOSINOPHILS % (AUTO) 1.5 %; HCT - HEMATOCRIT 26.5 % (37.0-47.0); HGB - HEMOGLOBIN 7.8 g/dL (12.0-16.0); LYMPHOCYTES # (AUTO) 0.7 10^3/uL (1.5-3.5); LYMPHOCYTES % (AUTO) 8.7 %; MEAN CORPUSCULAR HEMOGLOBIN 26.1 pg (27.0-31.0); MEAN CORPUSCULAR HGB CONC 29.4 g/dL (32.0-36.0); MEAN CORPUSCULAR VOLUME 88.6 fL (81.0-99.0); MEAN PLATELET VOLUME 9.3 fL (7.9-10.8); MONOCYTES # (AUTO) 0.9 10^3/uL (0.0-1.0); MONOCYTES % (AUTO) 11.4 %; NEUTROPHILS # (AUTO) 6.2 10^3/uL (1.5-6.6); NEUTROPHILS % (AUTO) 77.3 %; PLT - PLATELET COUNT 325 10^3/uL (130-450); RED BLOOD COUNT 2.99 10^6/uL (4.20-5.40); RED CELL DISTRIBUTION WIDTH 17.1 % (12.0-15.0)
[2024-02-05 18:16] LABS: CALCIUM 10.3 mg/dL (8.5-10.3); CREATININE 1.3 mg/dL (0.6-1.3); POTASSIUM 5.9 mmol/L (3.5-4.5)
== END 2024-02-05 11:45 | disposition home or self-care (01) ==
LOC: LAB.N 11:44
PROVIDERS: ATTEND Family Medicine
DX: D50.9 Iron deficiency anemia, unspecified (principal); E87.5 Hyperkalemia; E53.8 Deficiency of other specified B group vitamins
CPT/HCPCS: 36415; 80048; 85025

== ENCOUNTER 2024-03-07 21:19 | Outpatient (CLI) | payer MEDICARE, OTHER | END 2024-03-07 23:59 | disposition short-term general hospital (02) | LOC: EMS 21:19 | DX: R06.02 Shortness of breath (principal); R50.9 Fever, unspecified | CPT/HCPCS: A0425; A0427; A0888 ==

== ENCOUNTER 2024-03-17 14:08 | Outpatient (CLI) | payer MEDICARE, OTHER ==
[2024-03-17 17:44] LABS: BASOPHILS % (AUTO) 0.2 %; EOSINOPHILS % (AUTO) 0.2 %; HCT - HEMATOCRIT 39.7 % (37.0-47.0); HGB - HEMOGLOBIN 12.1 g/dL (12.0-16.0); LYMPHOCYTES # (AUTO) 0.5 10^3/uL (1.5-3.5); LYMPHOCYTES % (AUTO) 4.4 %; MEAN CORPUSCULAR HEMOGLOBIN 27.9 pg (27.0-31.0); MEAN CORPUSCULAR HGB CONC 30.5 g/dL (32.0-36.0); MEAN CORPUSCULAR VOLUME 91.5 fL (81.0-99.0); MONOCYTES # (AUTO) 0.7 10^3/uL (0.0-1.0); MONOCYTES % (AUTO) 5.4 %; NEUTROPHILS % (AUTO) 88.7 %; PLT - PLATELET COUNT 288 10^3/uL (130-450); RED BLOOD COUNT 4.34 10^6/uL (4.20-5.40); RED CELL DISTRIBUTION WIDTH 17.4 % (12.0-15.0); WHITE BLOOD COUNT 12.4 x10^3/uL (4.8-10.8)
[2024-03-17 18:00] LABS: CALCIUM 9.8 mg/dL (8.5-10.3); CREATININE 0.6 mg/dL (0.6-1.3); POTASSIUM 4.2 mmol/L (3.5-4.5)
== END 2024-03-17 14:09 | disposition home or self-care (01) ==
LOC: LAB.N 14:08
PROVIDERS: ATTEND Family Medicine
DX: I10 Essential (primary) hypertension (principal); D50.9 Iron deficiency anemia, unspecified; N28.9 Disorder of kidney and ureter, unspecified; E78.5 Hyperlipidemia, unspecified
CPT/HCPCS: 36415; 80048; 85025

== ENCOUNTER 2024-04-11 11:59 | Outpatient (CLI) | payer MEDICARE, OTHER ==
[2024-04-11 18:29] LABS: ALBUMIN 4.4 g/dL (3.2-5.5); BILIRUBIN,TOTAL 0.9 mg/dL (0.2-1.0); CREATININE 0.8 mg/dL (0.6-1.3); POTASSIUM 5.4 mmol/L (3.5-4.5); TOTAL PROTEIN 6.6 g/dL (6.4-8.9)
== END 2024-04-11 12:00 | disposition home or self-care (01) ==
LOC: LAB.N 11:59
PROVIDERS: ATTEND Family Medicine
DX: I10 Essential (primary) hypertension (principal); E87.5 Hyperkalemia
CPT/HCPCS: 36415; 80053

== ENCOUNTER 2024-04-25 12:49 | Outpatient (CLI) | payer MEDICARE, OTHER ==
[2024-04-25 18:01] LABS: BASOPHILS # (AUTO) 0.1 10^3/uL (0.0-0.1); BASOPHILS % (AUTO) 0.9 %; EOSINOPHILS # (AUTO) 0.1 10^3/uL (0.0-0.7); EOSINOPHILS % (AUTO) 0.9 %; HCT - HEMATOCRIT 33.8 % (37.0-47.0); HGB - HEMOGLOBIN 10.4 g/dL (12.0-16.0); LYMPHOCYTES # (AUTO) 0.7 10^3/uL (1.5-3.5); LYMPHOCYTES % (AUTO) 7.5 %; MEAN CORPUSCULAR HEMOGLOBIN 28.2 pg (27.0-31.0); MEAN CORPUSCULAR HGB CONC 30.8 g/dL (32.0-36.0); MEAN CORPUSCULAR VOLUME 91.6 fL (81.0-99.0); MONOCYTES # (AUTO) 0.9 10^3/uL (0.0-1.0); MONOCYTES % (AUTO) 9.8 %; NEUTROPHILS # (AUTO) 7.2 10^3/uL (1.5-6.6); NEUTROPHILS % (AUTO) 80.6 %; PLT - PLATELET COUNT 248 10^3/uL (130-450); RED BLOOD COUNT 3.69 10^6/uL (4.20-5.40); RED CELL DISTRIBUTION WIDTH 15.9 % (12.0-15.0)
[2024-04-25 18:52] LABS: CALCIUM 9.6 mg/dL (8.5-10.3); CREATININE 0.9 mg/dL (0.6-1.3); POTASSIUM 5.6 mmol/L (3.5-4.5)
== END 2024-04-25 12:50 | disposition home or self-care (01) ==
LOC: LAB.N 12:49
PROVIDERS: ATTEND Family Medicine
DX: E87.5 Hyperkalemia (principal); D50.0 Iron deficiency anemia secondary to blood loss (chronic)
CPT/HCPCS: 36415; 80048; 85025

== ENCOUNTER 2024-04-28 08:57 | Outpatient (CLI) | payer MEDICARE, OTHER | END 2024-04-28 08:58 | disposition home or self-care (01) | LOC: LAB.N 08:57 | DX: D50.0 Iron deficiency anemia secondary to blood loss (chronic) (principal) | CPT/HCPCS: 36415; 82728 ==

== ENCOUNTER 2024-05-10 09:20 | Outpatient (CLI) | payer MEDICARE, OTHER ==
[2024-05-10 19:14] LABS: ALBUMIN 4.2 g/dL (3.2-5.5); ALBUMIN/GLOBULIN RATIO 1.8 (1.0-2.2); ALKALINE PHOSPHATASE 41 IU/L (42-121); ALT ALANINE AMINOTRANSFERASE 10 IU/L (10-60); AST ASPARTATE AMINOTRANSFERASE 13 IU/L (10-42); BILIRUBIN,TOTAL 0.7 mg/dL (0.2-1.0); BUN - BLOOD UREA NITROGEN 17 mg/dL (6-20); CALCIUM 9.9 mg/dL (8.5-10.3); CARBON DIOXIDE - CO2 27 mmol/L (21-32); CHLORIDE 101 mmol/L (101-111); CREATININE 0.8 mg/dL (0.6-1.3); GFR - MDRD 69 (>89); GLUCOSE 112 mg/dL (74-104); POTASSIUM 4.8 mmol/L (3.5-4.5); SODIUM 133 mmol/L (135-145); TOTAL PROTEIN 6.5 g/dL (6.4-8.9); TRIGLYCERIDES 55 mg/dL (48-352)
[2024-05-10 19:15] LABS: CHOL/HDL RATIO 1.9 (<4.4); CHOLESTEROL 140 mg/dL; HDL CHOLESTEROL 72 mg/dL; LDL CHOLESTEROL,CALCULATED 57 mg/dL; LDL/HDL RATIO 0.8 (<4.4); VLDL CHOLESTEROL 11 mg/dL
[2024-05-11 09:21] LABS: ESTIMATED AVERAGE GLUCOSE 108 mg/dL (70-100); HEMOGLOBIN A1c% 5.4 % (4.27-6.07)
== END 2024-05-10 09:21 | disposition home or self-care (01) ==
LOC: LAB.N 09:20
PROVIDERS: ATTEND Family Medicine
DX: E87.5 Hyperkalemia (principal); E03.9 Hypothyroidism, unspecified; E53.8 Deficiency of other specified B group vitamins; E78.2 Mixed hyperlipidemia; C50.919 Malignant neoplasm of unspecified site of unspecified female breast; R06.09 Other forms of dyspnea; J69.0 Pneumonitis due to inhalation of food and vomit; I10 Essential (primary) hypertension; I48.11 Longstanding persistent atrial fibrillation; I07.1 Rheumatic tricuspid insufficiency; J44.9 Chronic obstructive pulmonary disease, unspecified; N28.9 Disorder of kidney and ureter, unspecified; D50.9 Iron deficiency anemia, unspecified; Z13.0 Encounter for screening for diseases of the blood and blood-forming organs and certain disorders involving the immune mechanism; Z13.29 Encounter for screening for other suspected endocrine disorder; E11.9 Type 2 diabetes mellitus without complications
CPT/HCPCS: 36415; 80053; 80061; 82607; 83036; 83721; 83735; 84439; 84443

== ENCOUNTER 2024-06-06 11:57 | Outpatient (CLI) | payer MEDICARE, OTHER ==
[2024-06-06 18:31] LABS: CALCIUM 9.7 mg/dL (8.5-10.3); CREATININE 0.7 mg/dL (0.6-1.3); POTASSIUM 4.4 mmol/L (3.5-4.5)
== END 2024-06-06 11:58 | disposition home or self-care (01) ==
LOC: LAB.N 11:57
PROVIDERS: ATTEND Family Medicine
DX: N28.9 Disorder of kidney and ureter, unspecified (principal)
CPT/HCPCS: 36415; 80048

== ENCOUNTER 2024-07-18 12:34 | Outpatient (CLI) | payer MEDICARE, OTHER ==
[2024-07-18 18:15] LABS: ALBUMIN 4.2 g/dL (3.2-5.5); ALBUMIN/GLOBULIN RATIO 1.6 (1.0-2.2); BILIRUBIN,TOTAL 0.9 mg/dL (0.2-1.0); CALCIUM 9.6 mg/dL (8.5-10.3); CREATININE 0.7 mg/dL (0.6-1.3); POTASSIUM 4.6 mmol/L (3.5-4.5); TOTAL PROTEIN 6.8 g/dL (6.4-8.9)
== END 2024-07-18 12:35 | disposition home or self-care (01) ==
LOC: LAB.N 12:34
PROVIDERS: ATTEND Family Medicine
DX: E87.5 Hyperkalemia (principal); N28.9 Disorder of kidney and ureter, unspecified; I10 Essential (primary) hypertension
CPT/HCPCS: 36415; 80053

== ENCOUNTER 2024-07-29 12:03 | Outpatient (CLI) | payer MEDICARE, OTHER ==
[2024-07-29 17:42] LABS: BASOPHILS # (AUTO) 0.1 10^3/uL (0.0-0.1); EOSINOPHILS # (AUTO) 0.1 10^3/uL (0.0-0.7); HCT - HEMATOCRIT 41.5 % (37.0-47.0); HGB - HEMOGLOBIN 12.9 g/dL (12.0-16.0); LYMPHOCYTES # (AUTO) 0.6 10^3/uL (1.5-3.5); LYMPHOCYTES % (AUTO) 6.7 %; MEAN CORPUSCULAR HEMOGLOBIN 28.7 pg (27.0-31.0); MEAN CORPUSCULAR HGB CONC 31.1 g/dL (32.0-36.0); MEAN CORPUSCULAR VOLUME 92.2 fL (81.0-99.0); MEAN PLATELET VOLUME 9.9 fL (7.9-10.8); MONOCYTES % (AUTO) 10.9 %; NEUTROPHILS # (AUTO) 7.6 10^3/uL (1.5-6.6); NEUTROPHILS % (AUTO) 80.2 %; PLT - PLATELET COUNT 240 10^3/uL (130-450); RED CELL DISTRIBUTION WIDTH 13.8 % (12.0-15.0); WHITE BLOOD COUNT 9.4 x10^3/uL (4.8-10.8)
[2024-07-29 17:58] LABS: CALCIUM 9.7 mg/dL (8.5-10.3); CREATININE 0.7 mg/dL (0.6-1.3); INR 1.3 (0.8-1.2); POTASSIUM 4.3 mmol/L (3.5-4.5); PT - PROTHROMBIN TIME 14.1 secs (9.9-12.6)
== END 2024-07-29 12:04 | disposition home or self-care (01) ==
LOC: LAB.N 12:03
PROVIDERS: ATTEND Specialist
DX: I48.91 Unspecified atrial fibrillation (principal)
CPT/HCPCS: 36415; 80048; 85025; 85610